=== PATIENT | male | born 1980 | race Caucasian/White ===

== ENCOUNTER → 2020-05-13 12:24 | Outpatient (CLI) | payer OTHER, SELFPAY ==
[2020-05-13 13:56] LABS: Alanine Aminotransferase 21 IU/L (<50); Albumin 4.7 g/dL (3.5-5.0); Albumin Globulin Ratio 1.7 (1.0-2.8); Alkaline Phosphatase 67 U/L (38-126); Aspartate Aminotransferase 35 IU/L (17-59); BUN Creatinine Ratio 17.8 (6-22); Bilirubin Total 0.7 mg/dL (0.2-1.3); Blood Urea Nitrogen 16 mg/dL (9-20); Calcium 10.1 mg/dL (8.4-10.2); Carbon Dioxide 29 mmol/L (22-32); Chloride 105 mmol/L (98-107); Estimated Glomerular Filt Rate > 60.0 mL/min (>60); Globulin 2.7 g/dL (1.7-4.1); Glucose 106 mg/dL (70-100); HEMOLYSIS < 15 (0-50); Potassium 4.9 mmol/L (3.4-5.1); Sodium 140 mmol/L (137-145); Total Protein 7.4 g/dL (6.3-8.2)
[2020-05-14 07:09] LABS: Valproic Acid (Depakene) Total 30 ug/mL (50-100)
== END ==
PROVIDERS: PCP Family Medicine; Referring Provider Psychiatry & Neurology Psychiatry; Visit Provider Psychiatry & Neurology Psychiatry
DX: F31.63 Bipolar disorder, current episode mixed, severe, without psychotic features (principal)
CPT/HCPCS: 36415; 80053; 80164

== ENCOUNTER → 2020-09-11 16:41 | Outpatient (CLI) | payer OTHER, SELFPAY ==
[2020-09-11 18:13] LABS: Alanine Aminotransferase 21 IU/L (<50); Albumin 4.6 g/dL (3.5-5.0); Albumin Globulin Ratio 1.5 (1.0-2.8); Alkaline Phosphatase 55 U/L (38-126); Aspartate Aminotransferase 26 IU/L (17-59); BUN Creatinine Ratio 12.8 (6-22); Bilirubin Total 0.4 mg/dL (0.2-1.3); Blood Urea Nitrogen 15 mg/dL (9-20); Calcium 9.3 mg/dL (8.4-10.2); Carbon Dioxide 28 mmol/L (22-32); Chloride 105 mmol/L (98-107); Estimated Glomerular Filt Rate > 60.0 mL/min (>60); Glucose 87 mg/dL (70-100); HEMOLYSIS < 15 (0-50); Potassium 4.8 mmol/L (3.4-5.1); Sodium 140 mmol/L (137-145); Total Protein 7.6 g/dL (6.3-8.2)
[2020-09-11 18:32] LABS: Free T4, Direct Thyroxine 0.92 ng/dL (0.78-2.19)
[2020-09-11 18:46] LABS: Thyroid Stimulating Hormone 5.37 uIU/mL (0.47-4.68)
== END ==
PROVIDERS: PCP Physician Assistant; Referring Provider Psychiatry & Neurology Psychiatry; Visit Provider Psychiatry & Neurology Psychiatry
DX: F31.63 Bipolar disorder, current episode mixed, severe, without psychotic features (principal)
CPT/HCPCS: 36415; 80053; 84439; 84443

== ENCOUNTER → 2021-02-20 10:37 | Outpatient (CLI) | payer OTHER, SELFPAY ==
[2021-02-20] MEDS: COVID-19 VACC #1, MRNA(MOD) 100 MCG/0.5 ML VIAL IM (10:45)
== END ==
PROVIDERS: PCP Physician Assistant; Visit Provider Internal Medicine
DX: Z23 Encounter for immunization (principal)
CPT/HCPCS: 0011A; 91301

== ENCOUNTER → 2021-03-20 10:26 | Outpatient (CLI) | payer OTHER, SELFPAY ==
[2021-03-20] MEDS: COVID-19 VACC #2, MRNA(MOD) 100 MCG/0.5 ML VIAL IM (10:29)
== END ==
PROVIDERS: PCP Physician Assistant; Visit Provider Internal Medicine
DX: Z23 Encounter for immunization (principal)
CPT/HCPCS: 0012A; 91301